=== PATIENT | male | born 1995 | race Caucasian/White ===

== ENCOUNTER 2025-06-28 22:08 | Emergency (ER) | payer OTHER, BC ==
[2025-06-28 22:15] VITALS: BP 125/66; PULSE 76; RESP 17; TEMP 97.3; BMI 24.2
[2025-06-28] MEDS ORDERED: IBUPROFEN 600 MG TABLET (FP) PO ONE (23:11)
[2025-06-28] MEDS: IBUPROFEN 600 MG TABLET (FP) PO ONE (23:11)
== END 2025-06-29 01:22 | disposition home or self-care (01) ==
LOC: FER 22:08
DX: S16.1XXA Strain of muscle, fascia and tendon at neck level, initial encounter (principal); S29.012A Strain of muscle and tendon of back wall of thorax, initial encounter; V49.40XA Driver injured in collision with unspecified motor vehicles in traffic accident, initial encounter; Y92.410 Unspecified street and highway as the place of occurrence of the external cause
CPT/HCPCS: 72050-TC-FY; 72070-TC-FY; 99284-25